=== PATIENT | female | born 1990 | race Caucasian/White ===

== ENCOUNTER 2020-12-11 17:56 | Emergency (ER) | payer OTHER ==
[~2020-12-11] VITALS: Ht 162.6 cm; Wt 73.9 kg
[2020-12-11] MEDS ORDERED: PRENATAL + DHA1 EAC1 (18:09)
== END 2020-12-11 21:06 | disposition home or self-care (01) ==
LOC: ER 17:56
DX: O30.031 Twin pregnancy, monochorionic/diamniotic, first trimester (principal)

== ENCOUNTER → 2020-12-16 | Emergency (ER) | payer OTHER ==
[~2020-12-16] VITALS: Ht 170.2 cm; Wt 79.4 kg
[~2020-12-16] MED LIST: ACETAMINOPHEN650 M2 PO; PRENATAL + DHA1 EAC1
== END ==
LOC: ER 20:52
DX: O46.8X1 Other antepartum hemorrhage, first trimester (principal); Z3A.08 8 weeks gestation of pregnancy

== ENCOUNTER 2020-12-17 23:17 | Emergency (ER) | payer OTHER ==
[~2020-12-17] VITALS: Ht 162.6 cm; Wt 73.9 kg
[~2020-12-17 23:17] MED LIST changes: -ACETAMINOPHEN650 M2 PO
[2020-12-18] MEDS ORDERED: ACETAMINOPHEN650 M2 PO (06:21)
== END 2020-12-18 06:35 | disposition home or self-care (01) ==
LOC: ER 23:17
DX: N93.9 Abnormal uterine and vaginal bleeding, unspecified (principal)

== ENCOUNTER 2021-03-09 09:50 | Outpatient (CLI) | payer OTHER ==
[~2021-03-09 09:50] MED LIST changes: +ACETAMINOPHEN650 M2 PO
== END 2021-03-09 10:03 | disposition home or self-care (01) ==
LOC: SONOGRAMA 09:50
PROVIDERS: ATTEND Obstetrics & Gynecology Reproductive Endocrinology
DX: N84.0 Polyp of corpus uteri (principal); N96 Recurrent pregnancy loss

== ENCOUNTER 2021-12-23 04:15 | Inpatient (IN) | payer OTHER ==
[~2021-12-23] VITALS: Ht 162.6 cm; Wt 2.7 kg
[2021-12-23] MEDS ORDERED: FOLIC ACID0.8 M1 (06:07)
[2021-12-23] MEDS ORDERED: CHILDREN'S ASPI81 MG (06:07)
[2021-12-23] MEDS ORDERED: INTEGRA F CAPS1 EACH (06:08)
[2021-12-23] MEDS ORDERED: VITAMIN D310 MC4 (06:08)
[2021-12-23] MEDS ORDERED: VITAMIN E90 M1 (06:09)
== END 2021-12-25 14:39 | disposition home or self-care (01) | DRG 787 ==
LOC: LDR 04:15 → O/R 04:15 → OB/GYN 04:15 → O/R 10:21 → OB/GYN 14:01
PROVIDERS: ADMIT Specialist; ATTEND Specialist
PROC: 4A1HXCZ Monitoring of Products of Conception, Cardiac Rate, External Approach (ICD-10-PCS; 2021-12-23)
PROC: 10D00Z1 Extraction of Products of Conception, Low, Open Approach (ICD-10-PCS; principal; 2021-12-23 10:00)
DX: O32.2XX0 Maternal care for transverse and oblique lie, not applicable or unspecified (principal); O41.03X0 Oligohydramnios, third trimester, not applicable or unspecified; Z3A.37 37 weeks gestation of pregnancy; Z37.0 Single live birth; Z20.822 Contact with and (suspected) exposure to COVID-19

== ENCOUNTER 2024-05-19 22:26 | Inpatient (IN) | payer OTHER ==
[~2024-05-19] VITALS: Ht 162.6 cm; Wt 2.7 kg
[2024-05-19 21:16] VITALS: BP 108/69
[~2024-05-19 22:26] MED LIST changes: +CHILDREN'S ASPI81 MG; +FOLIC ACID0.8 M1; +INTEGRA F CAPS1 EACH; +VITAMIN D310 MC4; +VITAMIN E90 M1
[2024-05-19] MEDS ORDERED: RINGERS SOLUTION,LACTATED 1,000 ML IV SCH (23:00)
[2024-05-19] MEDS ORDERED: BETAMETHASONE ACETATE,SOD PHOS 30 MG/5 ML ML IM ONE (23:00)
[2024-05-19 23:53] VITALS: BP 90/57
[2024-05-20] VITALS (7 sets, daily range): BP systolic 90–108; BP diastolic 46–69; O2SAT 97
[2024-05-20] MEDS ORDERED: CEFAZOLIN SODIUM 1,000 MG VIAL ONE (00:23)
[2024-05-20] MEDS ORDERED: CEFAZOLIN SODIUM 1,000 MG VIAL IV ONE (00:30)
[2024-05-20] MEDS ORDERED: CEFAZOLIN SODIUM 1,000 MG VIAL IV SCH (06:00)
[2024-05-20] MEDS ORDERED: TERBUTALINE SULFATE 1 MG/ML AMPUL ONE (08:02)
[2024-05-20] MEDS ORDERED: TERBUTALINE SULFATE 1 MG/ML AMPUL SUBCUTANEO STA (08:13)
[2024-05-20] MEDS ORDERED: TERBUTALINE SULFATE 1 MG/ML AMPUL SUBCUTANEO SCH (12:00)
[2024-05-20] MEDS ORDERED: BETAMETHASONE ACETATE,SOD PHOS 30 MG/5 ML ML IM SCH (22:00)
[2024-05-21 03:16] VITALS: BP 99/58
[2024-05-21 07:12] VITALS: BP 110/60
[2024-05-21] MEDS ORDERED: ERYTHROMYCIN BASE OPHT 1GM EACH TUBE OP ONE (07:13)
[2024-05-21] MEDS ORDERED: OXYTOCIN 10 UNITS/ML VIAL ONE (07:13)
[2024-05-21] MEDS ORDERED: CARBOPROST TROMETHAMINE 250 MCG/ML AMPUL IM ONE (08:25)
[2024-05-21] MEDS ORDERED: CEFAZOLIN SODIUM 1,000 MG VIAL IV STA (09:20)
[2024-05-21] MEDS ORDERED: MEPERIDINE HCL/PF 50 MG,MEPERIDINE HCL/PF 25 MG IM SCH (09:30)
[2024-05-21] MEDS ORDERED: CEFAZOLIN SODIUM 1,000 MG VIAL ONE (10:24)
[2024-05-21] MEDS ORDERED: MORPHINE SULFATE 4 MG/ML VIAL IV ONE (11:00)
[2024-05-21] MEDS ORDERED: CEFAZOLIN SODIUM 1,000 MG VIAL IV SCH (12:00)
[2024-05-21] MEDS ORDERED: PROMETHAZINE HCL 25 MG/ML AMPUL IV SCH (12:00)
[2024-05-21 13:00] VITALS: BP 120/77
[2024-05-21 15:35] VITALS: BP 124/81
[2024-05-22 00:31] VITALS: BP 96/63
[2024-05-22 06:59] LABS: HEMATOCRIT 30.4 % (36.0-45.00); HEMOGLOBIN 10.6 g/dL (12.0-15.00); MEAN CELL VOLUME 92.8 fL (80.00-100.00); MEAN CORPUSCULAR HEMOGLOBIN 32.5 pg (27.00-32.0); PLATELET COUNT 256 K/uL (150-450); RED BLOOD COUNT 3.27 M/uL (4.00-6.00); RED CELL DISTRIBUTION WIDTH 14.3 % (11.5-14.5)
[2024-05-22] MEDS ORDERED: OxyCODONE HCL/APAP UD (PERCOCET) PO SCH (08:02)
[2024-05-22] MEDS ORDERED: ACETAMINOPHEN 500 MG GEL..CAP PO SCH (08:04)
[2024-05-22 08:21] VITALS: BP 106/65
[2024-05-22 16:00] VITALS: BP 117/67
[2024-05-23] VITALS: BP 100/60
[2024-05-23 08:58] VITALS: BP 110/71
== END 2024-05-23 14:24 | disposition home or self-care (01) | DRG 786 ==
LOC: OBS/DEL 22:26 → LDR 05-20 00:37 → OBS/DEL 05-20 00:39 → OB/GYN 05-20 08:08 → LDR 05-20 08:08 → O/R 05-21 07:43 → OB/GYN 05-21 10:56
PROVIDERS: ADMIT Specialist; ATTEND Specialist
PROC: 4A1HXCZ Monitoring of Products of Conception, Cardiac Rate, External Approach (ICD-10-PCS; 2024-05-20)
PROC: 10D00Z1 Extraction of Products of Conception, Low, Open Approach (ICD-10-PCS; principal; 2024-05-21 10:45)
DX: O36.8130 Decreased fetal movements, third trimester, not applicable or unspecified (principal); O60.14X0 Preterm labor third trimester with preterm delivery third trimester, not applicable or unspecified; O34.211 Maternal care for low transverse scar from previous cesarean delivery; O69.89X0 Labor and delivery complicated by other cord complications, not applicable or unspecified; Z3A.36 36 weeks gestation of pregnancy; Z37.0 Single live birth; Z20.822 Contact with and (suspected) exposure to COVID-19

== ENCOUNTER 2025-03-09 18:42 | Emergency (ER) | payer OTHER ==
[~2025-03-09] VITALS: Ht 162.6 cm; Wt 90.7 kg
[2025-03-09] MEDS ORDERED: ONDANSETRON HCL 2 MG/ML VIAL IV ONE (19:45)
[2025-03-09] MEDS ORDERED: 0.9 % SODIUM CHLORIDE 1,000 ML IV ONE (19:45)
[2025-03-09 20:24] LABS: BASO % 0.3 % (0.1-1.2); EOS # 0.09 (0.04-0.54); EOS % 0.6 % (0.7-7.0); LYMPH # 1.43 (1.18-3.74); LYMPH % 9.6 % (19.3-53.1); MEAN PLATELET VOLUME 9.00 fl (9.4-12.4); MONO # 0.81 (0.24-0.82); MONO % 5.5 % (4.7-12.5); NEUT # 12.41 (1.56-6.13); NEUT % 83.7 % (34.0-71.1); RED CELL DISTRIBUTION WIDTH 12.4 % (11.6-14.4)
[2025-03-09 20:53] LABS: ALT/SGPT 82 U/L (12-78); AST/SGOT 37 U/L (15-37); BILIRUBIN TOTAL 0.71 mg/dL (0.3-1.2); BUN CREA RATIO 29 (7.0-25.0); CREATININE SERUM 0.66 mg/dL (0.55-1.02); GFR 103.14; GLOBULINA 3.8 G/DL (2.4-3.5); GLUCOSE FASTING 123 mg/dL (65-100); OSMOLALITY SERUM 289 MOSM/KG (275-295)
[2025-03-09 21:05] LABS: HCG QUANTITATIVE < 1 mUI/mL (1-3)
[2025-03-09 22:09] LABS: COVID-19 AG NEGATIVE (NEGATIVE)
== END 2025-03-09 22:53 | disposition home or self-care (01) ==
LOC: ER 18:43
PROVIDERS: General Practice
DX: K52.89 Other specified noninfective gastroenteritis and colitis (principal); Z20.822 Contact with and (suspected) exposure to COVID-19